=== PATIENT | female | born 1985 | race Caucasian/White ===

== ENCOUNTER 2019-05-25 13:45 | Emergency (ER) | payer SELFPAY ==
[2019-05-25 14:02] VITALS: BP 123/75; PULSE 63; TEMP 98.1; BMI 24.1
--- NOTE | 2019-05-25 14:03 | PDOC ---
Rapid Medical Evaluation Time Seen by Provider: 05/25/19 13:56 Medical Evaluation: Allergies Allergy/AdvReac Type Severity Reaction Status Date / Time No Known Allergies Allergy Verified 05/25/19 13:56 05/25/19 13:56 I have performed a brief in-person evaluation of this patient. The patient presents with a chief complaint of: slipped and fell onto side of tub x 1 week, hit back of neck/head. c/o of visual floaters, "tingling" to face , headache, dizziness, denies vomiting but endorses some nausea. denies Pertinent physical exam findings: no focal neuro deficits I have ordered the following: head/cspine CT The patient will proceed to the ED for further evaluation. Discharge Disposition - Diagnosis Fall - Referrals - Patient Instructions - Post Discharge Activity
--- NOTE | 2019-05-25 14:13 | PDOC ---
History of Present Illness - General Chief Complaint: Injury Stated Complaint: HEADACHE Time Seen by Provider: 05/25/19 13:56 History Source: Patient - History of Present Illness Timing/Duration: reports: 1 week Past History - Past Medical History Allergies/Adverse Reactions: Allergies Allergy/AdvReac Type Severity Reaction Status Date / Time No Known Allergies Allergy Verified 05/25/19 13:56 COPD: No - Psycho Social/Smoking Cessation Hx Smoking History: Never smoked Hx Alcohol Use: No Drug/Substance Use Hx: No Review of Systems - Review of Systems HEENTM: No: Blurred Vision ABD/GI: No: Nausea, Vomiting Musculoskeletal: Yes: Neck Pain. No: Back Pain Neurological: Yes: Headache, Dizziness. No: Numbness, Paresthesia, Tingling, Weakness *Physical Exam - Vital Signs Last Vital Signs Temp Pulse Resp BP Pulse Ox 98.1 F 63 20 123/75 100 05/25/19 13:57 05/25/19 13:57 05/25/19 13:57 05/25/19 13:57 05/25/19 13:57 - Physical Exam General Appearance: Yes: Appropriately Dressed. 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 Denies any LOC, n/v, slurred speech, focal weakness or sensory changes See exam Possible concussion, less likely bleed Stable w/ intact neuro exam -CT pending 05/25/19 16:23 CT head and neck read as negative. Patient remained stable and neurologically intact in facility. Will dc with concussion precautions, supportive treatment and follow-up with neuro for continued evaluation Discharge - Discharge Information Problems reviewed: Yes Clinical Impression/Diagnosis: Dizziness Fall Qualifiers: Encounter type: initial encounter Qualified Code(s): W19.XXXA - Unspecified fall, initial encounter Head ache Qualifiers: Headache type: unspecified Headache chronicity pattern: acute headache Intractability: not intractable Qualified Code(s): R51 - Headache Condition: Improved Disposition: HOME - Follow up/Referral Referrals: Red Mckenna MD [Staff Physician] - - Patient Discharge Instructions Patient Printed Discharge Instructions: Concussion Additional Instructions: Your head and neck CT are negative. You may have a concussion, which is a mild brain injury that can cause confusion , memory loss, headache, nausea, vomiting, dizziness, feeling sleepy, cranky, trouble walking or talking, trouble sleeping, mood or behavior changes or visual changes. A concussion can persist for weeks to months but should gradually get better Continue to rest and avoid too much extraneous activities. If symptoms affect her driving, refrain from driving For headache you can take Tylenol as directed Please follow-up with Dr. Mckenna of neurology for continued evaluation - Post Discharge Activity
== END 2019-05-25 16:10 | disposition home or self-care (01) ==
LOC: JERFT 13:45
DX: R51 Headache (principal); R42 Dizziness and giddiness
CPT/HCPCS: 70450-TC; 72125-TC; 84703; 99284-25

== ENCOUNTER 2021-09-09 15:32 | Emergency (ER) | payer SELFPAY ==
[2021-09-09 15:48] VITALS: BP 124/82; PULSE 72; TEMP 98.6; BMI 30.1
[2021-09-09] MEDS ORDERED: ACETAMINOPHEN 1000 MG/100 ML BAG IVPB ONE (17:18)
[2021-09-09] MEDS ORDERED: ACETAMINOPHEN INJECTION 100 ML IVPB ONE (17:53)
== END 2021-09-09 18:48 | disposition left against medical advice (07) ==
LOC: JER 15:32
PROC: 3E0333Z Introduction of Anti-inflammatory into Peripheral Vein, Percutaneous Approach (ICD-10-PCS; principal; 2021-09-09)
DX: R10.11 Right upper quadrant pain (principal)
CPT/HCPCS: 71046-TC-FY; 99285-25